=== PATIENT | female | born 1985 | race Caucasian/White ===

== ENCOUNTER 2019-10-01 05:42 | Inpatient (IN) | payer OTHER, SELFPAY ==
[2019-10-01] VITALS (105 sets, daily range): BP systolic 68–163; BP diastolic 41–99; PULSE 65–125; RESP 16–18; TEMP 36.2–37.2; O2SAT 98–100; BMI 46.2
--- NOTE | 2019-10-01 06:31 | LDADM ---
This patient, Tamar Kurtz, was admitted to Labor/Delivery/Recovery 104 on 10/01/19 at 05:42. Plans for labor, pain management and were discussed with patient. Patient/family oriented to hospital policies and general routines including ID bracelet, bed and alarms, visiting hours, pain management, procedures, bathroom and other care routines, personal items, smoking policy, room service/diet and guest tray routines, infant security routines, and visiting hours. Patient/Family are encouraged to report perceived risks to care and to ask questions if they do not understand what they are told or what they should do. See OBIX for further documentation.
[2019-10-01 06:32] LABS: Basophils Percent Auto 0.2 % (0.2-1.2); Eosinophils Absolute Auto 0.1 K/mm3 (0-0.3); Eosinophils Percent Auto 0.9 % (0-4.4); Hemoglobin 11.3 g/dL (12.0-15.0); Immature Granulocyte Absolute 0.03 K/mm3 (0.00-0.031); Immature Granulocyte Percent A 0.3 % (0-0.5); Lymphocytes Absolute Auto 2.13 K/mm3 (0.9-3.2); Lymphocytes Percent Auto 24.4 % (18.3-44.2); Mean Corpuscular HGB Conc 33.2 g/dl (32-36); Mean Corpuscular Hemoglobin 29.5 pg (26-34); Mean Corpuscular Volume 88.8 fl (80-100); Monocytes Absolute Auto 0.6 K/mm3 (0.1-0.6); Monocytes Percent Auto 6.8 % (2.6-8.5); Neutrophils Absolute Auto 5.9 K/mm3 (1.3-6.7); Neutrophils Percent Auto 67.4 % (45.5-73.1); Platelet Count Result 239 k/mm3 (150-375); Red Blood Count 3.83 M/mm3 (4.2-5.4); Red Cell Distribution Width 13.5 % (11.5-14.5); White Blood Count 8.7 K/mm3 (4.5-10.0)
[2019-10-01] MEDS: OXYTOCIN 30 UNITS/NS 500 ML 30 UNITS/500 ML BAG IV CONT (06:42)
[2019-10-01] MEDS: LACTATED RINGERS 1,000 ML 125 ML IV CONT ×2 (06:42→10:44)
--- NOTE | 2019-10-01 07:32 | WPDOBADMIT ---
Obstetrics - Admit Note Admission Note: AROM clear fluid 3/-2 thin meconium. vertex record reviewed. No pertinent additions to the history and/or any subsequent changes in the physical findings that are not consistent with the expected course of the were found. Additions to the history and/or subsequent changes in the physical findings follow. None.
[2019-10-01] MEDS: SODIUM CHLORIDE 0.9% IV 300 ML 600 ML I-UTERINE (08:30)
[2019-10-01 08:37] LABS: Rapid Plasma Reagin Non-Reactive (NonReactive)
[2019-10-01] MEDS: SODIUM CHLORIDE 0.9% IV 1,000 ML 150 ML I-UTERINE (09:00)
--- NOTE | 2019-10-01 14:01 | P.PCNOB_ITS ---
OB - Delivery Note Procedure Delivery date: 10/01/19 Procedure: events: Labor Induction Intrapartal events: None Induction method: AROM and per pitocin protocol Delivery monitor: external FHT and internal uterine Route of delivery: Laceration description: Perineal - 1st Degree Delivery repair: vicryl (3-0) Specimen: No Estimated blood loss (mL): 100 Anesthesia type: Epidural Disposition: floor [place] Baby Weeks of gestation at delivery: 39 gender: Female Weight (pounds): 7 Weight (ounces): 12 presentation: vertex Placenta delivery description: Spontaneous cord vessel description: 3 Vessels and Nuchal Cord (and around shoulder delivered through) score one minute: 8 score five minutes: 9
--- NOTE | 2019-10-01 14:03 | PM.OBDSVD ---
DS: Diagnosis Discharge Diagnosis (1) 39 weeks gestation of : Code(s): Z3A.39 - 39 weeks gestation of Status: Acute (2) (normal spontaneous vaginal delivery): Code(s): O80 - Encounter for full-term uncomplicated delivery Status: Acute OB - DS: Summary OB Procedures : Ultrasound OB Procedures Intrapartum: Spontaneous Vag Delivery OB Procedures: : None Peripartum Data Delivery Method: Natural Vaginal Laceration description: Perineal - 1st Degree complications: none Status at Discharge Functional status at discharge: independent ambulation Overall status at discharge: patient is progressing back to baseline Time Spent with Patient Time attestation: Total time spent providing and/or coordinating discharge services: DS: Data Data Completed and Pending Labs on day of discharge: Labs from last 24 hours 10/01/19 10/01/19 10/01/19 06:16 06:16 06:16 WBC 8.7 RBC 3.83 L Hgb 11.3 L Hct 34.0 L MCV 88.8 MCH 29.5 MCHC 33.2 RDW 13.5 Plt Count 239 MPV 10.0 Immature Gran % (Auto) 0.3 Neut % (Auto) 67.4 Lymph % (Auto) 24.4 [place] % (Auto) 6.8 Eos % (Auto) 0.9 Baso % (Auto) 0.2 Lymph # (Auto) 2.13 [place] # (Auto) 0.6 Eos # (Auto) 0.1 Baso # (Auto) 0.0 Abs Immat Gran (auto) 0.03 Absolute Neuts (auto) 5.9 Absolute Nucleated RBC 0.0 Nucleated RBC % 0.0 RPR Non-reactive Blood Type A Positive Antibody Screen Negative Discharge Plan Discharge Attending physician on discharge: Angela Michael Discharging Clinician: Angela Michael Anticipated Discharge Date/Time: 10/03/19 07:04 Patient Disposition: Home, Self-Care Activity: pelvic rest Diet: regular Discharge Instructions: Education: Mom and Baby Guide Given to: Mother Follow-Up: Call your delivering provider's office for an appointment to be seen in: 6 Weeks Mom and baby should come to the [facility] for the follow-up appointment. Appointment Date/Time: October 04, 2019 at 9:00 am What to expect at your follow-up visit: Blood Pressure Check Physical Assessment Call [phone] if you are unable to keep your appointment time. BREAST CARE: 1. Wear a snug supportive bra. 2. For engorgement discomfort: Breast Feeding: A. Apply warm moist washcloths B. Express milk as needed to relieve engorgement C. Wear loose clothing 3. For sore nipples: A. Identify correct latch-on B. Apply warm moist washcloths before and after nursing C. Air dry nipples after nursing D. May apply Lansinoh cream to nipples PERINEAL CARE: 1. Until bleeding stops, use your joann bottle after urinating 2. Change your pad frequently throughout the day 3. You may take sitz baths several times a day (fill your bathtub with warm water and soak for 20 minutes.) Do NOT bathe in the water 4. No tub baths until seen by your physician - You may shower ACTIVITY: 1. Rest as much as possible. 2. Do not exercise or lift anything heavier than your baby (such as laundry or other children.) for 2 weeks 3. Avoid stairs or driving as much as possible for 2 weeks. 4. Do not put anything into the vagina. No douching, tampons, or sexual activity until seen by physician. NOTIFY PHYSICIAN IF YOU HAVE ANY QUESTIONS OR IF ANY OF THE FOLLOWING SYMPTOMS OCCUR: 1. If your perineum becomes red, swollen, or more painful than what you have experienced in the hospital. 2. If your vaginal bleeding becomes foul smelling. 3. If your vaginal bleeding becomes more heavy than a period or if your bleeding changes from pink to bright red. However, you may pass an occasional walnut-sized clot once or twice for the first week . 4. If you experience a sharp, shooting pain in your calves. 5. If you discover a hard, reddened area on your b
[2019-10-01] MEDS: OXYTOCIN 30 UNITS/NS 500 ML 30 UNITS/500 ML BAG 125 UNITS IV CONT (14:30)
--- NOTE | 2019-10-01 16:42 | OBPPTRN ---
Patient transferred to post room # 286 via wheelchair. Support person present. Oriented to unit, room, information board, rooming in, admission packet and security measures. Patient verbalizes understanding.
[2019-10-02 04:41] LABS: Hematocrit 31.4 % (37.0-47.0); Hemoglobin 10.4 g/dL (12.0-15.0)
[2019-10-02] MEDS: DOCUSATE SODIUM 100 MG CAPSULE PO (07:57)
[2019-10-02] MEDS: LEVOTHYROXINE SODIUM 125 MCG TABLET 250 MCG PO (07:57)
[2019-10-02] MEDS: MULTIVIT/MIN/PREN/FOL AC/IRON TABLET 1 TAB PO (07:57)
--- NOTE | 2019-10-02 11:17 | WPDANLDPN2 ---
Anes-Prog Note L&D Date/Time: 10/02/19 11:17 Comfortable throughout: labor and delivery Neuraxial method: epidural Epidural/Spinal procedure site: clean & non-tender Neuro status: Neuro function grossly intact. Cardiovascular status: normal Respiratory status: normal Mental status: baseline Post-Op hydration status: normal Vital Signs: Last Vital Signs Temp 98.9 F 10/01/19 20:15 Pulse 95 10/01/19 20:15 Resp 16 10/01/19 20:15 BP 123/71 10/01/19 20:15 Pulse Ox 100 10/01/19 20:15 Patient feedback: Patient satisfied with anesthetic care.
--- NOTE | 2019-10-02 12:16 | PM.OBPNVD ---
OB - PN: Subj Subjective Date/time seen: 10/02/19 12:16 Patient comments: no complaints baby status: doing well [place] feeding status: exclusively breast feeding OB - PN: Obj Data Labs CBC & Chem 7: 10/02/19 04:32 Labs: Laboratory Results - last 24 hr 10/02/19 04:32 Hgb 10.4 L Hct 31.4 L OB - PN A/P Assessment and Plan (1) (normal spontaneous vaginal delivery): Code(s): O80 - Encounter for full-term uncomplicated delivery Status: Acute Assessment and Plan: Doing well. Possible DC home. Plans micronor Time Spent With Patient Time: Total time spent is greater than 50% in coordination of care (as documented) at patient's floor/unit and/or counseling patient: Exam : Bimanual exam- vagina & uterus: other (Uterus firm, nt @U)
[2019-10-02 20:15] VITALS: BP 129/68; PULSE 77; RESP 16; TEMP 36.9; O2SAT 100
[2019-10-03] MEDS: MULTIVIT/MIN/PREN/FOL AC/IRON TABLET 1 TAB PO (08:28)
[2019-10-03] MEDS: DOCUSATE SODIUM 100 MG CAPSULE PO (08:28)
--- NOTE | 2019-10-03 08:31 | PM.OBPNVD ---
OB - PN: Subj Subjective Date/time seen: 10/03/19 08:31 Patient comments: no complaints baby status: doing well OB - PN: Obj Data Labs CBC & Chem 7: 10/02/19 04:32 OB - PN A/P Plan day: 2 Plan: routine care, discharge home, follow up 6 weeks and other (plans micronor) Time Spent With Patient Time: Total time spent is greater than 50% in coordination of care (as documented) at patient's floor/unit and/or counseling patient: Exam : Bimanual exam- vagina & uterus: other (Uterus firm, nt @U)
[2019-10-03] MEDS: LEVOTHYROXINE SODIUM 125 MCG TABLET 250 MCG PO (08:36)
[2019-10-03] MEDS: BENZOCAINE 20% AER SPR (*SP) 56 GM CAN 1 SPRAY TOPICAL (08:36)
[2019-10-03] MEDS: WITCH HAZEL 40 PADS 1 PAD TOPICAL (08:36)
[2019-10-03 09:06] VITALS: BP 133/85; PULSE 69; RESP 14; TEMP 36.6; O2SAT 100
[2019-10-04 09:22] VITALS: BP 117/68; PULSE 76; RESP 28; TEMP 36.7
== END 2019-10-03 10:35 | disposition home or self-care (01) | DRG 807 ==
LOC: ANHLDR 14:05 → ANHOB2 16:48
PROVIDERS: Admitting Provider Obstetrics & Gynecology Gynecology; Visit Provider Obstetrics & Gynecology Gynecology
DX: O77.0 Labor and delivery complicated by meconium in amniotic fluid (principal); Z37.0 Single live birth; O70.0 First degree perineal laceration during delivery; O76 Abnormality in fetal heart rate and rhythm complicating labor and delivery; O69.82X0 Labor and delivery complicated by other cord entanglement, without compression, not applicable or unspecified; Z3A.39 39 weeks gestation of pregnancy
CPT/HCPCS: 36415; 85014; 85018; 85025; 86592; 86850; 86900; 86901; A9270; J2590; J2795; J7030; J7120

== ENCOUNTER → 2021-07-05 12:48 | Outpatient (CLI) | payer OTHER, SELFPAY ==
--- NOTE | ~2021-07-05 | US_ITS ---
EXAMINATION: US OB <= 14 weeks fetus DATE: 07/05/2021 13:04 INDICATION: First trimester with miscarriage during prior TECHNIQUE: Real-time pelvic ultrasound utilizing transabdominal probe was performed. The tamiko ross radiologist was not present for the study. COMPARISON: None. FINDINGS: The uterus measures 10.6 x 5.6 x 8.2 cm. There is an intrauterine gestational sac. A yolk sac and fe orin pole are identified. The crown rump length measures 2.1 cm, which correlates with an estimated ge stational age of 8 weeks and 5 days. heart motion is identified measuring 169 beats per minute (bpm) by M-mode Doppler. 2.1 x 1.5 x 1.3 similar hypoechoic subchorionic hemorrhage along the left si de of the gestational sac. The right ovary measures 3.1 x 1.6 x 2.5 cm. The left ovary is not visualized. There is no free fluid in the pelvis. IMPRESSION: 1. Single living fetus with heart rate of 169 bpm. 2. Gestational age by ultrasound of 8 weeks 5 day(s) +/- 5 day(s) with ultrasound estimated date of delivery (VERONICA) of 02/09/2022. 3. Small subchorionic hematoma. Reviewed, dictated and finalized at location A. INE SHORTHAND REPORTER IMPRESSION: 1. Single living fetus with heart rate of 169 bpm. 2. Gestational age by ultrasound of 8 weeks 5 day(s) +/- 5 day(s) with ultraso und estimated date of delivery (VERONICA) of 02/09/2022. 3. Small subchorionic hematoma.
== END ==
PROVIDERS: Visit Provider Obstetrics & Gynecology Gynecology
DX: O26.21 Pregnancy care for patient with recurrent pregnancy loss, first trimester (principal); O20.8 Other hemorrhage in early pregnancy; Z3A.01 Less than 8 weeks gestation of pregnancy
CPT/HCPCS: 76801

== ENCOUNTER → 2021-08-06 10:28 | Outpatient (CLI) | payer OTHER, SELFPAY ==
--- NOTE | ~2021-08-06 | US_ITS ---
US OB limited 08/06/2021 10:51 Indication: Follow-up subchorionic hematoma Procedure: High-resolution Limited obstetrical ultrasound Comparison: 07/05/2021 Findings: There is a single living intrauterine with a heart rate 1 50 bpm. Small sub chorionic hemorrhage measures 1.6 x 1.8 x 1.6 cm, slightly decreased in size compared with prior stud y. Uterus measures 16.6 x 7.1 x 3.5 cm. Impression: 1: Single living intrauterine . 2: Diminished size of small subchorionic hematoma. Reviewed, dictated and finalized at location B. ET MAKER Impression: 1: Single living intrauterine . 2: Diminished size of small subchorionic hematoma.
== END ==
PROVIDERS: Visit Provider Obstetrics & Gynecology Gynecology
DX: O36.8910 Maternal care for other specified fetal problems, first trimester, not applicable or unspecified (principal); Z3A.00 Weeks of gestation of pregnancy not specified
CPT/HCPCS: 76815

== ENCOUNTER → 2021-09-07 09:05 | Outpatient (CLI) | payer OTHER, SELFPAY ==
--- NOTE | ~2021-09-07 | US_ITS ---
US OB follow up DATE: 09/07/2021 09:34 INDICATION: Subchorionic hematoma TECHNIQUE: Real-time imaging and Doppler analysis COMPARISON: August 06, 2021 obstetrical ultrasound Limited examination FINDINGS: Previously noted small subchorionic hematoma noted on August 06, 2021 obstetrical ultraso und examination is no longer evident. Live hen[place] intrauterine gestation, fetus in vertex presentation with heart rate of 138 bpm. Posterior placenta, lower margin 2.1 cm above the internal os. Subjectively normal amount of amniotic fluid. IMPRESSION: Resolution of small subchorionic hematoma since 08/06/2021 Vertex presentation Reviewed, dictated and finalized at Location A. Reviewed, dictated and finalized at location A.
== END ==
PROVIDERS: Visit Provider Obstetrics & Gynecology Gynecology
DX: O36.8920 Maternal care for other specified fetal problems, second trimester, not applicable or unspecified (principal); Z3A.00 Weeks of gestation of pregnancy not specified
CPT/HCPCS: 76816

== ENCOUNTER 2021-10-11 10:27 | Emergency (ER) | payer OTHER, SELFPAY ==
[2021-10-11 10:46] VITALS: BP 142/82; PULSE 98; RESP 16; TEMP 36.3
--- NOTE | 2021-10-11 10:53 | ED.EYEPROB ---
HPI - Eye Problem General Chief complaint: Eye Problems Stated complaint: EYE REDNESS/DRAINAGE Time Seen by Provider: 10/11/21 10:47 Source: patient and RN notes reviewed Mode of arrival: ambulatory Limitations: no limitations History of Present Illness HPI Narrative: Patient presents today complaining of redness and drainage from both eyes x2 days with matting in the mornings. She also reports some itching. Denies pain or vision changes. Patient does wear contacts, but is currently wearing her glasses. She has tried no [id number] treatment prior to arrival. MD chief complaint: eye redness Related Data Home Medications Medication Instructions Recorded Confirmed ergocalciferol (vitamin D2) 1,250 50,000 unit PO WEEKLY cap 11/09/19 08/28/21 mcg (50,000 unit) capsule levothyroxine [Tirosint] PO 10/11/21 -zpln fum-folic ac-om3 pkg PO 10/11/21 [Daily ] Allergies Allergy/AdvReac Type Severity Reaction Status Date / Time No Known Allergies Allergy Mild Verified 10/11/21 10:39 Review of Systems Review of Systems: CONSTITUTIONAL: Denies body aches, fever, chills, or sweats. EYES: Denies visual changes. + Bilateral eye redness and drainage, itching ENT: Denies rhinorrhea, congestion, sore throat, or otalgia. CARDIOVASCULAR: Denies chest pain, palpitations, or edema. RESPIRATORY: Denies cough or dyspnea. GASTROINTESTINAL: Denies abdominal pain, nausea, vomiting, or diarrhea. GENITOURINARY: Denies dysuria or hematuria. SKIN: Denies rash, itching, or wounds. MUSCULOSKELETAL: Denies back pain, joint pain, or myalgia. NEUROLOGIC: Denies headache, numbness, tingling, or weakness. PSYCH: Denies depression or anxiety. [facility] Past Medical History Medical History (Updated 10/11/21 @ 10:57 by Shiloh Ward, LONG, GERARD) Thyroid disease Family History Family History Grandparent Breast cancer Mother Diabetes mellitus Congestive heart failure Father Borderline diabetes Social History Social History Smoking status: Never smoker Alcohol intake: current Substance use: never Spiritual care concerns: No Comments At time of signature, I have reviewed and agree with nursing past medical, surgical, social and family history unless otherwise noted. Please see nursing chart for further information. There is no relevant family history pertinent to the presenting complaint Exam Narrative: GENERAL: Well-appearing, well-nourished, and in no acute distress. HEAD: Normocephalic, atraumatic. EYES: EOMI. PERRL. + Bilateral injected conjunctiva with purulent green discharge and eyelash matting. ENT: Mucous membranes pink and moist. Nares clear. NECK: Normal AROM. CHEST: No respiratory distress. EXTREMITIES: Normal range of motion. No edema. SKIN: Warm, dry, no rash. Capillary refill normal. Normal skin turgor. NEURO: No focal deficits. Alert and oriented x3. Gait steady. PSYCH: Normal affect. No signs of depression or anxiety. Course Course Level of Care: Express Care Visit Vital Signs Vital signs: Vital Signs Temperature 97.3 F L 10/11/21 10:46 Pulse Rate 98 10/11/21 10:46 Respiratory Rate 16 10/11/21 10:46 Blood Pressure 142/82 H 10/11/21 10:46 Temperature 97.3 F L 10/11/21 10:46 Pulse Rate 98 10/11/21 10:46 Respiratory Rate 16 10/11/21 10:46 Blood Pressure 142/82 H 10/11/21 10:46 Reviewed. Pt has been instructed to follow up with her PCP regarding her elevated blood pressure today. MDM - Eye Problem Differential Diagnosis Differential diagnosis: Likely corneal abrasion, conjunctivitis and periorbital cellulitis Critical Care Time Critical Care Time Critical Care Time: No Discharge Plan Discharge Clinical Impression: Acute bacterial conjunctivitis of both eyes Patient Disposition: Home, Self-Care Condition:
== END 2021-10-11 11:10 | disposition home or self-care (01) ==
PROVIDERS: Emergency Provider Nurse Practitioner; PCP Family Medicine
DX: H10.33 Unspecified acute conjunctivitis, bilateral (principal); E03.9 Hypothyroidism, unspecified
CPT/HCPCS: 99213; G0463

== ENCOUNTER 2022-02-02 04:56 | Inpatient (IN) | payer OTHER, SELFPAY ==
[2022-02-02] VITALS (81 sets, daily range): BP systolic 123–146; BP diastolic 56–88; PULSE 68–105; RESP 18–20; TEMP 36.4–37.2; O2SAT 98–100; BMI 46.7
[2022-02-02 06:04] LABS: Basophils Percent Auto 0.1 % (0.2-1.2); Eosinophils Absolute Auto 0.1 K/mm3 (0-0.3); Eosinophils Percent Auto 0.9 % (0-4.4); Hemoglobin 10.9 g/dL (12.0-15.0); Immature Granulocyte Absolute 0.02 K/mm3 (0.00-0.031); Immature Granulocyte Percent A 0.2 % (0-0.5); Lymphocytes Percent Auto 22.3 % (18.3-44.2); Mean Corpuscular Hemoglobin 29.7 pg (26-34); Mean Corpuscular Volume 89.9 fl (80-100); Mean Platelet Volume 10.4 fl (7.4-10.4); Monocytes Absolute Auto 0.6 K/mm3 (0.1-0.6); Monocytes Percent Auto 7.4 % (2.6-8.5); Neutrophils Absolute Auto 5.9 K/mm3 (1.3-6.7); Neutrophils Percent Auto 69.1 % (45.5-73.1); Platelet Count Result 235 k/mm3 (150-375); Red Blood Count 3.67 M/mm3 (4.2-5.4); Red Cell Distribution Width 13.6 % (11.5-14.5); White Blood Count 8.5 K/mm3 (4.5-10.0)
[2022-02-02] MEDS: LACTATED RINGERS 1,000 ML 125 ML IV CONT (07:04)
[2022-02-02] MEDS: OXYTOCIN 30 UNITS/NS 500 ML 30 UNITS/500 ML BAG 125 UNITS IV CONT ×2 (07:04→14:57)
--- NOTE | 2022-02-02 07:41 | WPDOBADMIT ---
Obstetrics - Admit Note Admission Note: record reviewed. No pertinent additions to the history and/or any subsequent changes in the physical findings that are not consistent with the expected course of the were found. Additions to the history and/or subsequent changes in the physical findings follow. Here for MIL at 39 wks. Cervix /-2 AROM. clear, large amount. FHTs reactive.
--- NOTE | 2022-02-02 12:11 | WPDANESEPP ---
Anes - Eval Pre Procedure Procedure: Labor Epidural Date/Time: 02/02/22 12:11 Surgeon: Alec Preop Diagnosis: Labor Pain Pre Op Diagnosis: IOL Patient Data Age: 36 Gender: F Height: 1.88 m Weight: 165 kg Last Vital Signs Temp 36.6 C 02/02/22 11:00 Pulse 76 02/02/22 12:02 BP 144/72 H 02/02/22 12:02 O2 Del Method Room Air 02/02/22 05:26 Allergies Allergy/AdvReac Type Severity Reaction Status Date / Time No Known Allergies Allergy Mild Verified 10/11/21 10:39 Home Medications Medication Instructions Recorded Confirmed Type ergocalciferol (vitamin D2) 1,250 50,000 unit PO WEEKLY 11/09/19 02/02/22 History mcg (50,000 unit) capsule (Vitamin D2) levothyroxine 137 mcg capsule 137 mcg PO DAILY 10/11/21 02/02/22 History (Tirosint) vits 75-iron 28 mg-folic 1 pkg PO DAILY 10/11/21 02/02/22 History acid 800 mcg-omega3 440 mg oral pack ferrous sulfate 27 mg iron tablet 27 mg PO DAILY 01/09/22 02/02/22 History Laboratory Tests 02/02/22 02/02/22 02/02/22 05:11 05:11 05:11 WBC 8.5 K/mm3 K/mm3 (4.5-10.0) RBC 3.67 M/mm3 L M/mm3 (4.2-5.4) Hgb 10.9 g/dL L g/dL (12.0-15.0) Hct 33.0 % L % (37.0-47.0) MCV 89.9 fl fl (80-100) MCH 29.7 pg pg (26-34) MCHC 33.0 g/dl g/dl (32-36) RDW 13.6 % % (11.5-14.5) Plt Count 235 k/mm3 k/mm3 (150-375) MPV 10.4 fl fl (7.4-10.4) Immature Gran % (Auto) 0.2 % % (0-0.5) Neut % (Auto) 69.1 % % (45.5-73.1) Lymph % (Auto) 22.3 % % (18.3-44.2) [place] % (Auto) 7.4 % % (2.6-8.5) Eos % (Auto) 0.9 % % (0-4.4) Baso % (Auto) 0.1 % L % (0.2-1.2) Lymph # (Auto) 1.90 K/mm3 K/mm3 (0.9-3.2) [place] # (Auto) 0.6 K/mm3 K/mm3 (0.1-0.6) Eos # (Auto) 0.1 K/mm3 K/mm3 (0-0.3) Baso # (Auto) 0.0 K/mm3 K/mm3 (0.0-0.1) Abs Immat Gran (auto) 0.02 K/mm3 K/mm3 (0.00-0.031) Absolute Neuts (auto) 5.9 K/mm3 K/mm3 (1.3-6.7) Absolute Nucleated RBC 0.0 K/mm3 K/mm3 (0.0-0.012) Nucleated RBC % 0.0 % % (0.0-0.2) RPR Pending Blood Type A Positive Antibody Screen Negative : gestational age (VERONICA 02/09/22) Patient hx anesthesia problems: none Family hx anesthesia problems: none Results Review: All pre-operative results and documents have been reviewed as part of the pre-operative evaluation. [facility] Past Medical History Medical History Thyroid disease Family History Family History Grandparent Breast cancer Mother Diabetes mellitus Congestive heart failure Father Borderline diabetes Social History Social History Smoking status: Never smoker Alcohol intake: current Substance use: never Spiritual care concerns: No Exam Day of Procedure 02/02/22 12:11 Patient weight: morbidly obese Heart: regular rate and rhythm Lungs: normal air movement Airway: Mallampati scale class II Neurological: alert and oriented
--- NOTE | 2022-02-02 14:36 | PM.OBPRVD ---
OB - Delivery Note Procedure Delivery date: 02/02/22 Events: Macrosomia Induction method: AROM and Per Pitocin Protocol Delivery monitor: External FHT and Internal Uterine Route of delivery: Laceration Description: Vaginal Delivery repair: vicryl (3-0) Specimen: No Quantitative Blood Loss (ml): 200 Anesthesia type: Epidural Disposition: Floor Baby Date of : 02/02/22 Weeks of gestation at delivery: 39 gender: Female Weight (pounds): 9 Weight (ounces): 13 presentation: vertex position: Right Occiput Anterior Placenta delivery description: Spontaneous Cord Vessel Description: 3 Vessels and Nuchal Cord (delivered through) score one minute: 9 score five minutes: 9
--- NOTE | 2022-02-02 14:38 | PM.OBDSVD ---
DS: Admitting Diagnosis Discharge Date 02/03/22 Admitting Diagnosis IUP 39 wks macrosomia DS: Discharge Diagnosis Discharge Diagnosis (1) (normal spontaneous vaginal delivery): Code(s): O80 - Encounter for full-term uncomplicated delivery Status: Acute OB - DS: Summary OB Procedures : Ultrasound OB Procedures Intrapartum: Spontaneous Vag Delivery OB Procedures: : None Peripartum Data Delivery Method: Natural Vaginal Laceration Description: Vaginal - 1st Degree complications: none Status at Discharge Functional status at discharge: independent ambulation Overall status at discharge: patient is progressing back to baseline Time Spent with Patient Time attestation: Total time spent providing and/or coordinating discharge services: DS: Data Data Completed and Pending Labs on day of discharge: Labs from last 24 hours 02/02/22 02/02/22 02/02/22 05:11 05:11 05:11 WBC 8.5 RBC 3.67 L Hgb 10.9 L Hct 33.0 L MCV 89.9 MCH 29.7 MCHC 33.0 RDW 13.6 Plt Count 235 MPV 10.4 Immature Gran % (Auto) 0.2 Neut % (Auto) 69.1 Lymph % (Auto) 22.3 [place] % (Auto) 7.4 Eos % (Auto) 0.9 Baso % (Auto) 0.1 L Lymph # (Auto) 1.90 [place] # (Auto) 0.6 Eos # (Auto) 0.1 Baso # (Auto) 0.0 Abs Immat Gran (auto) 0.02 Absolute Neuts (auto) 5.9 Absolute Nucleated RBC 0.0 Nucleated RBC % 0.0 RPR Pending Blood Type A Positive Antibody Screen Negative Discharge Plan Discharge Attending physician on discharge: Angela Michael Discharging Clinician: Angela Michael Anticipated Discharge Date/Time: 02/03/22 14:39 Patient Disposition: Home, Self-Care Activity: may shower and pelvic rest Diet: regular Patient Instructions: Antibiotic Form Stand Alone Forms: General Discharge Information Follow-up/Referrals: Angela Michael MD [Physician] - 6 Weeks Discharge Medications: New norethindrone (contraceptive) 0.35 mg tablet 0.35 mg PO DAILY Qty: 28 3RF Continued levothyroxine [Tirosint] 137 mcg capsule 137 mcg PO DAILY Daily 28-800-440 mg-mcg-mg Combo Pack 1 pkg PO DAILY ergocalciferol (vitamin D2) [Vitamin D2] 1,250 mcg (50,000 unit) capsule 50,000 unit PO WEEKLY ferrous sulfate 27 mg iron Tablet 27 mg PO DAILY Rx Instructions: Pt unsure of dosage Date of admission: 02/02/22 04:56 Primary Care Provider: Claudia Jasso Admitting Provider: Angela Michael Attending physician on admission: Angela Michael Condition: Stable
--- NOTE | 2022-02-02 17:00 | PC.NURSE ---
Patient transferred to post room #282 via wheelchair. Support person present. Oriented to unit, room, information board, rooming in, admission packet and security measures. Patient verbalizes understanding.
[2022-02-03 04:00] VITALS: BP 136/85; PULSE 86; RESP 16; TEMP 36.3; O2SAT 98
[2022-02-03 05:38] LABS: Hematocrit 32.7 % (37.0-47.0); Hemoglobin 10.6 g/dL (12.0-15.0)
[2022-02-03] MEDS: LEVOTHYROXINE SODIUM 25 MCG TABLET PO (06:50)
[2022-02-03] MEDS: LEVOTHYROXINE SODIUM 112 MCG TABLET PO (06:50)
[2022-02-03 07:00] VITALS: BP 128/89; PULSE 82; RESP 18; TEMP 36.6; O2SAT 99
[2022-02-03] MEDS: MULTIVIT/MIN/PREN/FOL AC/IRON TABLET 1 TAB PO (08:25)
--- NOTE | 2022-02-03 08:53 | PM.OBPNVD ---
OB - PN: Subj Subjective Date/time seen: 02/03/22 08:53 Patient comments: no complaints and pain well controlled baby status: doing well and nursing well OB - PN: Obj Data Labs CBC & Chem 7: 02/03/22 04:10 Labs: Laboratory Results - last 24 hr 02/03/22 04:10 Hgb 10.6 L Hct 32.7 L OB - PN A/P Plan day: 1 Plan: routine care, discharge home, follow up 6 weeks and other (plans oc's until vasectomy) Time Spent With Patient Time: Total time spent is greater than 50% in coordination of care (as documented) at patient's floor/unit and/or counseling patient: Exam : Bimanual exam- vagina & uterus: other (Uterus firm, nt @U)
--- NOTE | 2022-02-03 11:16 | WPDANLDPN2 ---
Anes-Prog Note L&D Date/Time: 02/03/22 11:16 Comfortable throughout: labor and delivery Neuraxial method: epidural Epidural/Spinal procedure site: clean & non-tender Neuro status: Neuro function grossly intact. Cardiovascular status: normal Respiratory status: normal Airway patency: baseline Mental status: baseline Post-Op hydration status: normal Vital Signs: Last Vital Signs Temp 36.6 C 02/03/22 07:00 Pulse 82 02/03/22 07:00 Resp 18 02/03/22 07:00 BP 128/89 02/03/22 07:00 Pulse Ox 99 02/03/22 07:00 O2 Del Method Room Air 02/02/22 05:26 Pain score (VAS): 06/25 Post-procedural complaints: none Patient feedback: Patient satisfied with anesthetic care.
[2022-02-03 11:49] VITALS: BP 127/85; PULSE 78; RESP 18; TEMP 36.4; O2SAT 98
--- NOTE | 2022-02-03 11:56 | PC.NURSE ---
Patient viewed the discharge video Mother & Baby Care, The First Two Weeks . Patient was given the opportunity and encouraged to ask questions. Patient verbalized understanding of information shared and has been given the mother/baby guide for home reference.
[2022-02-04 08:00] LABS: Rapid Plasma Reagin Non-Reactive (NonReactive)
[2022-02-04 10:36] VITALS: BP 147/85; PULSE 74; RESP 20; TEMP 36.6; O2SAT 98
== END 2022-02-03 15:55 | disposition home or self-care (01) | DRG 807 ==
LOC: ANHLDR 14:39 → ANHOB2 17:54
PROVIDERS: Admitting Provider Obstetrics & Gynecology Gynecology; PCP Family Medicine; Visit Provider Obstetrics & Gynecology Gynecology
DX: O36.63X0 Maternal care for excessive fetal growth, third trimester, not applicable or unspecified (principal); Z37.0 Single live birth; O70.0 First degree perineal laceration during delivery; O99.284 Endocrine, nutritional and metabolic diseases complicating childbirth; E07.9 Disorder of thyroid, unspecified; O69.81X0 Labor and delivery complicated by cord around neck, without compression, not applicable or unspecified; O99.214 Obesity complicating childbirth; E66.01 Morbid (severe) obesity due to excess calories; Z3A.39 39 weeks gestation of pregnancy
CPT/HCPCS: 36415; 85014; 85018; 85025; 86592; 86850; 86900; 86901; A9270; J2590; J2795; J7120

== ENCOUNTER 2022-11-06 08:43 | Emergency (ER) | payer OTHER, SELFPAY ==
--- NOTE | ~2022-11-06 | XR_ITS ---
EXAMINATION: XR chest 2V DATE: 11/06/2022 09:23 INDICATION: Cough. TECHNIQUE: Frontal and lateral views of the chest were obtained on 4 radiographs. COMPARISON: None. FINDINGS: The chest demonstrates clear lungs without pneumonia, pleural effusion, or pneumothorax. Th e heart size is normal. IMPRESSION: 1. No acute cardiopulmonary disease. Reviewed, dictated and finalized at location A.
--- NOTE | 2022-11-06 08:57 | ED.URI ---
HPI - URI/Sore Throat General Chief Complaint: Upper Respiratory Infection Stated Complaint: COUGH/SINUS CONGESTION Time Seen by Provider: 11/06/22 08:58 Source: patient Mode of arrival: ambulatory Limitations: no limitations History of Present Illness HPI Narrative: 36-year-old female presents with complaint of cough, chest congestion for 2 weeks. She reports sinus congestion headaches nasal congestion, sore throat for the past 7 days. Taking [id number] DayQuil NyQuil cold and flu with no relief of symptoms. States she is up at night coughing. Denies chest pain and shortness of breath. Has felt feverish the last few days but has not checked temp. Denies nausea vomiting diarrhea. All systems reviewed and negative except as noted above. Related Data Allergies Allergy/AdvReac Type Severity Reaction Status Date / Time No Known Allergies Allergy Mild Verified 11/06/22 09:06 Review of Systems Review of Systems: CONSTITUTIONAL: Denies fever, chills, or sweats. EYES: Denies visual changes, redness, or discharge. ENT: Reports rhinorrhea, congestion, sinus congestion, sore throat. Denies otalgia. CARDIOVASCULAR: Denies chest pain, palpitations, or edema. RESPIRATORY: Reports cough. Denies dyspnea. GASTROINTESTINAL: Denies abdominal pain, nausea, vomiting, or diarrhea. GENITOURINARY: Denies dysuria or hematuria. SKIN: Denies rash or itching. MUSCULOSKELETAL: Denies back pain, joint pain, or myalgia. NEUROLOGIC: Denies headache, numbness, or weakness. PSYCHIATRIC: Denies anxiety or depression. All other systems reviewed are negative, except as documented in HPI. [facility] Past Medical History Medical History (Updated 11/06/22 @ 09:20 by Marylu Funes NP) Thyroid disease Family History Family History Grandparent Breast cancer Mother Diabetes mellitus Congestive heart failure Father Borderline diabetes Social History Social History Smoking status: Never smoker Alcohol intake: current Substance use: never Spiritual care concerns: No Comments At time of signature, agree with nursing past medical, surgical, social and family history. There is no relevant family history pertinent to the presenting complaint. Exam Narrative: GENERAL: This is a well-nourished, well-developed patient, in no apparent distress. HEAD: normocephalic, atraumatic. EYES: PERRL. Sclera clear/white. Vision is grossly intact. EARS: External ears normal, auditory canals clear and without drainage, TMs normal without perforation. Hearing grossly intact. NOSE: External nose normal with purulent nasal drainage, erythema to both nares. Bilateral maxillary sinus tenderness. THROAT: Mucous membranes moist, erythema to posterior pharynx with postnasal drainage. NECK: Neck supple, non-tender without lymphadenopathy, masses or thyromegaly. CARDIOVASCULAR: Regular rate and rhythm without murmurs, gallops, or rubs. RESPIRATORY: Clear to auscultation. Breath sounds equal bilaterally. No wheezes, rales, or rhonchi. SKIN: warm, Dry, intact with no suspicious lesions or rash, good texture and turgor. NEURO: awake, alert, and oriented to person, place and time. There were no obvious focal neurologic abnormalities. EXTREMITIES: No joint tenderness, effusion, or edema noted. Course Course Level of Care: Express Care Visit Vital Signs Vital signs: Vital Signs Temperature 36.9 C 11/06/22 08:58 Pulse Rate 113 H 11/06/22 08:58 Respiratory Rate 16 11/06/22 08:58 Blood Pressure 136/85 11/06/22 08:58 Pulse Oximetry 100 11/06/22 08:58 Temperature 36.9 C 11/06/22 08:58 Pulse Rate 113 H 11/06/22 08:58 Respiratory Rate 16 11/06/22 08:58 Blood Pressure 136/85 11/06/22 08:58 Pulse Oximetry 100 11/06/22 08:58 Reviewed MDM - URI/Sore Throat MDM Narrative Medical decision making narrativ
[2022-11-06 08:58] VITALS: BP 136/85; PULSE 113; RESP 16; TEMP 36.9; O2SAT 100
== END 2022-11-06 09:24 | disposition home or self-care (01) ==
PROVIDERS: Emergency Provider Nurse Practitioner Family; PCP Family Medicine
DX: J20.9 Acute bronchitis, unspecified (principal); J01.90 Acute sinusitis, unspecified; E03.9 Hypothyroidism, unspecified
CPT/HCPCS: 71046; 99213; G0463

== ENCOUNTER 2024-03-08 09:12 | Outpatient (CLI) | payer OTHER, SELFPAY ==
--- NOTE | ~2024-03-08 | US_ITS ---
EXAMINATION: US thyroid DATE: 03/08/2024 09:23 INDICATION: Nontoxic goiter, unspecified. TECHNIQUE: Multiple ultrasound images of the thyroid were obtained. COMPARISON: None. FINDINGS: The right thyroid lobe measures 7.2 x 3.3 x 2.9 cm. The left thyroid lobe measures 7.1 x 2.5 x 2.9 c m. The thyroid is diffusely heterogeneous and hypoechoic. Vascularity is increased. In the left thyr oid lobe, there is a 10 mm solid, hypoechoic, wider than tall nodule with smooth margin without echog enic foci (TI-RADS TR4). In the left thyroid lobe, there is a 9 mm mixed cystic and solid, hypoechoic , wider than tall nodule with smooth margin without echogenic foci (TR3). IMPRESSION: 1. Heterogeneous, hypervascular thyroid, consistent with chronic lymphocytic (Srinivas's) thyroiditi s. 2. Small thyroid nodules. Thyroid ultrasound is recommended in one year. Reviewed, dictated and finalized at location A. IMPRESSION: 1. Heterogeneous, hypervascular thyroid, consistent with chronic lymphocytic (H ashimoto's) thyroiditis. 2. Small thyroid nodules. Thyroid ultrasound is recommended in one year.
== END 2024-03-08 09:13 | disposition home or self-care (01) ==
LOC: GOSHIMG 09:13
PROVIDERS: PCP Internal Medicine Endocrinology, Diabetes & Metabolism; Visit Provider Internal Medicine Endocrinology, Diabetes & Metabolism
DX: E04.2 Nontoxic multinodular goiter (principal)
CPT/HCPCS: 76536

== ENCOUNTER 2024-09-02 08:14 | Emergency (ER) | payer OTHER, SELFPAY ==
--- NOTE | 2024-09-02 08:17 | ED_ITS ---
HPI - Skin/Abscess/Foreign Bdy General Chief complaint: Skin/Abscess/Foreign Body Stated complaint: Rash on Hands Time Seen by Provider: 09/02/24 08:17 Source: patient Mode of arrival: ambulatory Limitations: no limitations History of Present Illness HPI narrative: Tamar is a 38-year-old female patient presenting to the clinic today with complaints of a rash on her hands and sore throat x2 days. She reports no known fevers, chills, or body aches. Rash was itchy yesterday but non itchy today. Related Data Allergies Allergy/AdvReac Type Severity Reaction Status Date / Time No Known Allergies Allergy Mild Verified 09/02/24 08:24 Review of Systems Review of Systems: Pertinent positives per HPI. Patient denies any fever, chills, headache, visual changes, dizziness, cough, runny nose, shortness of breath, chest pain, palpitations, nausea, vomiting, diarrhea, constipation, abdominal pain, or any urinary issues. PMF Past Medical History Medical History Thyroid disease Family History Family History Grandparent Breast cancer Mother Diabetes mellitus Congestive heart failure Father Borderline diabetes Social History Social History Smoking status: Never smoker Alcohol intake: current Substance use: never Lack of Transportation: No Lack of Food: Never True Current Housing: I Have Housing Concerned About Future Housing: No Difficulty Paying Gas/Electric Bills: No Difficulty Paying for Meds: No Currently Unemployed: No Education: Bachelor's Degree Difficulty w/ Childcare or Family Care: No Spiritual care concerns: No Comments At the time of my signature, I reviewed and agree with the nursing past medical, surgical, social, and family history. There is no relevant family history pertinent to the patient complaint. Exam Narrative: General: Well-developed, morbidly obese, in no apparent distress Head: Normocephalic, atraumatic Eyes: Pupils equally round and reactive to light bilaterally, EOM intact, sclera and conjunctive clear, no discharge, lids normal Ears: TMs intact and clear, ear canals clear, no drainage, grossly hearing normal. Nose: Nares patent, no discharge, no inflammation, no sinus tenderness. Mouth: Oropharynx red with bilateral tonsillar enlargement without lesions or masses, good dentition, MMM. Neck: Supple, trachea midline, no enlargement of anterior or posterior cervical nodes, no thyroid masses or goiter palpable. Cardio: Regular rate and rhythm, s1 and s2 normal, no murmur appreciated. Resp: Clear to auscultation bilaterally anteriorly and posteriorly, no rhonchi, rales, wheezing or rubs Integumentary: [place], warm, and dry, blanchable, red, raised, itchy at times, papular nontender like rash to bilateral hands Course Course Emergency Course: Portions of this record may have been created with voice recognition software. Level of Care: Express Care Visit Vital Signs Vital signs: Vital Signs Temperature 35.9 C L 09/02/24 08:25 Pulse Rate 84 09/02/24 08:25 Respiratory Rate 16 09/02/24 08:25 Blood Pressure 128/85 09/02/24 08:25 Pulse Oximetry 99 09/02/24 08:25 Temperature 35.9 C L 09/02/24 08:25 Pulse Rate 84 09/02/24 08:25 Respiratory Rate 16 09/02/24 08:25 Blood Pressure 128/85 09/02/24 08:25 Pulse Oximetry 99 09/02/24 08:25 Vital signs reviewed MDM - Skin/Abscess/Foreign Bdy MDM Narrative Medical decision making narrative: At the time of visit patient is resting comfortably on the exam table. Patient appears to be nontoxic. Labs: Strep test was negative. We will send for culture. Plan: Patient has rash to her hands that could be caused by early [id number] versus dermatitis due to new lotion. Recommend stopping the lotion. May apply triamcinolone cream as prescribed. Supportive measures were discussed with the patient and they voiced understanding discharge instructions and agrees to treatment plan. Return precautions reviewed Differential Diagnosis Differential diagnosis: Likely abscess of skin or subcutaneous tissue, viral exanthem, dermatophytosis, urticaria, herpes zoster, allergic reaction to drug, cellulitis, eczema, insect bites, impetigo, contact dermatitis and other ([id number], strep infection) Lab Data Labs: Lab Results 09/02/24 Range/Units 08:40 POC Grp A Strep Screen Negative (Negative) Discharge Plan Discharge Clinical Impression: Rash and nonspecific skin eruption Pharyngitis Qualifiers: Pharyngitis/tonsillitis etiology: unspecified etiology Qualified Code(s): J02.9 - Acute pharyngitis, unspecified Patient Disposition: Home, Self-Care Condition: Stable Instructions: Antibiotic Form, Pharyngitis (ED), Acute Rash (ED) Additional Instructions: Strep test was negative in the clinic today. We will send strep for culture. Take prescription medications only as prescribed-triamcinolone cream Increase fluids and stay well hydrated Tylenol/motrin for pain/fever Cepacol spray, cough drops, throat lozenges, warm tea with honey/lemon, gargle salt water to soothe throat Go to the ED if you develop a worsening in your condition- high fever not controlled by Tylenol or Motrin, dehydration, weakness, lethargy, shortness of breath, or chest pain. Follow up with your PCP in 3-5 days if symptoms persist. Patient Language: Nigerien Prescriptions: New triamcinolone acetonide 0.1 % cream 1 applic topical BID 7 Days Qty: 30 0RF No Action levothyroxine [Tirosint] 137 mcg capsule 137 mcg PO QAM Qty: 90 3RF Follow-up/Referrals: Claudia Jasso DO [Primary Care Provider] - Time of Disposition: 08:42 Quality NIHSS Nursing Documentation ED NIHSS nursing documentation: reviewed/agree
[2024-09-02 08:25] VITALS: BP 128/85; PULSE 84; RESP 16; TEMP 35.9; O2SAT 99
[2024-09-02 08:41] LABS: EDSTREPNEGPOS1 Negative (Negative)
== END 2024-09-02 08:48 | disposition home or self-care (01) ==
PROVIDERS: Emergency Provider Nurse Practitioner Family; PCP Family Medicine
DX: R21 Rash and other nonspecific skin eruption (principal); J02.9 Acute pharyngitis, unspecified
CPT/HCPCS: 87081; 87880; 99213; G0463

== ENCOUNTER 2025-04-29 08:10 | Outpatient (CLI) | payer OTHER, SELFPAY ==
--- NOTE | ~2025-04-29 | MM_ITS ---
EXAMINATION: MM screening alejandro BI w christi HISTORY: Screening TECHNIQUE: Craniocaudal and mediolateral oblique 3-D tomosynthesis images were obtained and synthetic 2-D images were generated. CAD analysis was submitted and interpreted. COMPARISON: No prior mammogram is available for comparison at this institution. BREAST PARENCHYMAL COMPOSITION: Not Dense. The breasts are almost entirely fatty. FINDINGS: There is no evidence of suspicious mass, calcification, or architectural distortion to suggest malignancy in either breast. There has been no suspicious interval change. IMPRESSION: 1. No mammographic evidence of malignancy. 2. Recommend routine screening mammography in one year. BI-RADS Category 1: Negative Reviewed, dictated and finalized at location B. [employer]ACH
--- OUTSIDE RECORDS SUMMARY | 2025-04-29 08:19 | XMS_ITS | Clinical Summary ---
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 BENEFIT PLANS
== END 2025-04-29 08:11 | disposition home or self-care (01) ==
LOC: ANHFOHIMG 08:13
PROVIDERS: PCP Family Medicine; Visit Provider Nurse Practitioner
DX: Z12.31 Encounter for screening mammogram for malignant neoplasm of breast (principal)
CPT/HCPCS: 77063; 77067